=== PATIENT | female | born 2000 | race Caucasian/White ===

== ENCOUNTER 2019-08-06 14:34 | Emergency (ER) | payer BC, SELFPAY ==
[2019-08-06 14:35] VITALS: BP 143/101; PULSE 70; RESP 16; TEMP 36.8; O2SAT 96; BMI 34.0
--- NOTE | 2019-08-06 15:22 | ED.DCSUM_ITS ---
- ER Visit Summary Date of Service: 08/06/19 Chief Complaint: Adverse reaction History of Present Illness: The patient is a 19 F who presents with adverse reaction to an inhaler that she took today for the first time. Patient states she was given an albuterol inhaler for recent upper respiratory infection. Patient used it for the first time today and then approximately 1 hour later she noted some burning in her throat and chest. Patient also noted some tingling in her face and twitching of her facial muscles. Patient states nothing makes it better or worse. Patient denies any fevers or chills. Patient does admit to a sore throat and recent rhinorrhea. Patient admits to a cough and some shortness of breath at times. Patient denies any difficulty swallowing or throat swelling. Physical Examination: Vital signs are stable. Patient is afebrile. Patient is in no acute distress. Oral mucosa is pink and moist. Oropharynx is clear. Airway is patent. Pupils are equal, round, and reactive to light bilaterally. Extraocular muscles are intact. Conjunctiva is clear. Neck is supple. Trachea is midline. There is no JVD. Heart was regular rate and rhythm. Lungs are clear and equal bilaterally. Abdomen is soft and nontender. Cranial nerves II through XII are intact. There are no focal motor or sensory deficits noted. There are no facial fasciculations noted. Emergency Department Course and Treatment: Patient was given a dose of Benadryl here. Patient was feeling better on reevaluation. Patient was instructed to stop using the inhaler. Patient was instructed to take Benadryl as needed. Patient was instructed to follow-up with her primary care physician in 5 to 7 days. Patient understood and was agreeable with the plan. All questions were answered. Disposition: Discharge home Impression: Adverse medication reaction This note was generated with [employer] dictation software. It may contain incorrect words, spelling, and punctuation that were not noted in review of the chart prior to signing ED Disposition - Plan for ED Patient: Disposition: Home or Assisted Living Diagnosis: Adverse drug reaction Instructions: DRUG REACTION, Other Referrals: NOT,DEFINED [NON-STAFF] - 5-7 Days
[2019-08-06] MEDS: DiphenhydrAMINE 25 MG Capsule 50 MG PO (15:58)
[2019-08-06 16:15] VITALS: BP 137/81; PULSE 69; RESP 16; O2SAT 99
== END 2019-08-06 16:16 | disposition home or self-care (01) ==
PROVIDERS: Emergency Provider Emergency Medicine
DX: R20.2 Paresthesia of skin (principal); R25.3 Fasciculation; T48.6X5A Adverse effect of antiasthmatics, initial encounter; Y92.9 Unspecified place or not applicable; J06.9 Acute upper respiratory infection, unspecified
CPT/HCPCS: 99283

== ENCOUNTER → 2019-10-10 07:53 | Outpatient (CLI) | payer BC, SELFPAY ==
[2019-10-10 08:18] LABS: Lyme Ab Screen Interpretation REF LAB
--- NOTE | 2019-10-10 08:57 | RAD_ITS ---
STUDY: X-RAY - BILATERAL HANDS REASON FOR EXAM: Female, 19 years old. CHRONIC PAIN. EVAL FOR RHEUMATOLOGY TECHNIQUE - RIGHT HAND: 1 view(s) of the right hand were obtained. TECHNIQUE - LEFT HAND: 1 view(s) of the left hand were obtained. COMPARISON: None. FINDINGS - RIGHT HAND: Normal visualized carpal bones and carpal articulations. Normal carpometacarpal articulation of the thumb. Normal second through fifth carpometacarpal joints. Normal metacarpi. Normal metacarpophalangeal (MCP) joints. Normal visualized phalanges and interphalangeal joints. The soft tissue structures are unremarkable. FINDINGS - LEFT HAND: Normal visualized carpal bones and carpal articulations. Normal carpometacarpal articulation of the thumb. Normal second through fifth carpometacarpal joints. Normal metacarpi. Normal metacarpophalangeal (MCP) joints. Normal visualized phalanges and interphalangeal joints. The soft tissue structures are unremarkable. RAD/Hand 2 Views IMPRESSION: Right Hand: Normal x-ray examination of the right hand. Left Hand: Normal x-ray examination of the left hand. Electronically Signed: Maury Muñoz, at 10:46 EDT , Service support ,
--- NOTE | 2019-10-10 08:57 | RAD_ITS ---
STUDY: X-RAY - LUMBAR SPINE REASON FOR EXAM: Female, 19 years old. CHRONIC PAIN TECHNIQUE: 4 view(s) of the lumbar spine were obtained including oblique views. COMPARISON: None FINDINGS: Normal lumbar lordosis. There is no substantial scoliosis. There is a normal alignment of the vertebrae. Normal vertebral bodies and endplates. Normal disc space heights. The soft tissue structures are unremarkable. RAD/L/S Spine Min 4 Views IMPRESSION: Normal x-ray examination of the lumbar spine. Electronically Signed: Maury Muñoz, at 11:07 EDT , Service support ,
--- NOTE | 2019-10-10 08:57 | RAD_ITS ---
STUDY: X-RAY - BILATERAL KNEES REASON FOR EXAM: Female, 19 years old. CHRONIC PAIN, LEFT KNEE WORSE THAN RIGHT -- EVAL FOR RHEUMATOLOGY TECHNIQUE: Single frontal view(s) of the right knee were obtained. Single frontal view(s) of the left knee were obtained. Single frontal view(s) of the bilateral knees were obtained including AP standing weight-bearing views. COMPARISON: None. FINDINGS - RIGHT KNEE: Normal visualized right distal femur. Normal visualized proximal right tibia and fibula. Normal right proximal tibiofibular articulation. Normal medial femorotibial compartment of the right knee. Normal lateral femorotibial compartment of the right knee. Normal patellofemoral articulation of the right knee. The soft tissue structures are unremarkable. FINDING - LEFT KNEE: Normal visualized left distal femur. Normal visualized proximal left tibia and fibula. Normal left proximal tibiofibular articulation. Normal medial femorotibial compartment of the left knee. Normal lateral femorotibial compartment of the left knee. Normal patellofemoral articulation of the left knee. The soft tissue structures are unremarkable. RAD/Knees Standing AP Bilateral IMPRESSION: Normal x-ray examination of the bilateral knees. Electronically Signed: Maury Muñoz, at 10:47 EDT , Service support ,
--- NOTE | 2019-10-10 08:57 | RAD_ITS ---
STUDY: X-RAY - CERVICAL SPINE REASON FOR EXAM: Female, 19 years old. CHRONIC PAIN TECHNIQUE: 5 view(s) of the cervical spine were obtained including oblique views. COMPARISON: None FINDINGS: Normal anterior atlantoaxial articulation. Normal odontoid process. There is straightening of the normal cervical lordosis. Normal vertebral bodies and endplates. Normal disc space heights. Normal visualized intervertebral neuroforamina. The soft tissue structures are unremarkable. RAD/Cerv Spine 4 or 5 Views IMPRESSION: There is straightening of the normal cervical lordosis. Electronically Signed: Maury Muñoz, at 10:46 EDT , Service support ,
--- NOTE | 2019-10-10 08:57 | RAD_ITS ---
STUDY: X-RAY - RIGHT WRIST REASON FOR EXAM: Female, 19 years old. CHRONIC PAIN TECHNIQUE: 2 view(s) of the wrist were obtained. COMPARISON: None. FINDINGS: Normal visualized distal radius and ulna. Normal radiocarpal articulation. Normal distal radioulnar articulation. Normal carpal bones. Normal carpal articulations. Normal carpometacarpal articulation of the thumb. Normal second through fifth carpometacarpal articulations. Normal visualized metacarpal bones. The soft tissue structures are unremarkable. RAD/Wrist 2 Views IMPRESSION: Normal x-ray examination of the wrist. Electronically Signed: Maury Muñoz, at 11:07 EDT , Service support ,
--- NOTE | 2019-10-10 08:57 | RAD_ITS ---
STUDY: X-RAY - SACROILIAC JOINTS REASON FOR EXAM: Female, 19 years old. CHRONIC PAIN TECHNIQUE: 3 view(s) of the sacroiliac joints were obtained. COMPARISON: None. FINDINGS: Normal bilateral sacroiliac joints. Normal visualized sacral ala and sacrum. Normal visualized iliac bones. Normal visualized soft tissue structures. RAD/S-I Jts 3 or More Views IMPRESSION: Normal x-ray examination of the bilateral sacroiliac joints. Electronically Signed: Maury Muñoz, at 11:09 EDT , Service support ,
--- NOTE | 2019-10-10 08:57 | RAD_ITS ---
STUDY: X-RAY - RIGHT KNEE REASON FOR EXAM: Female, 19 years old. CHRONIC PAIN TECHNIQUE: 4 view(s) of the knee. COMPARISON: None. FINDINGS: Normal visualized distal femur. Normal visualized proximal tibia and fibula. Normal proximal tibiofibular articulation. Normal medial femorotibial compartment. Normal lateral femorotibial compartment. Normal patellofemoral articulation. The soft tissue structures are unremarkable. RAD/Knee 4 or More Views IMPRESSION: Normal x-ray examination of the knee. Electronically Signed: Maury Muñoz, at 10:46 EDT , Service support ,
--- NOTE | 2019-10-10 08:57 | RAD_ITS ---
STUDY: X-RAY - THORACIC SPINE REASON FOR EXAM: Female, 19 years old. CHRONIC PAIN TECHNIQUE: 3 view(s) of the thoracic spine were obtained. COMPARISON: None. FINDINGS: There is straightening of the normal thoracic kyphosis. Minimal dextroscoliosis. Normal thoracic vertebrae and endplates. Normal disc space heights. The soft tissue structures are unremarkable. RAD/Thoracic Spine 3 Views IMPRESSION: Minimal dextroscoliosis with straightening of the normal thoracic kyphosis. Electronically Signed: Maury Muñoz, at 10:48 EDT , Service support ,
--- NOTE | 2019-10-10 08:57 | RAD_ITS ---
STUDY: X-RAY - LEFT KNEE REASON FOR EXAM: Female, 19 years old. CHRONIC PAIN, LEFT KNEE WORSE THAN RIGHT TECHNIQUE: 4 view(s) of the knee. COMPARISON: None. FINDINGS: Normal visualized distal femur. Normal visualized proximal tibia and fibula. Normal proximal tibiofibular articulation. Normal medial femorotibial compartment. Normal lateral femorotibial compartment. Normal patellofemoral articulation. The soft tissue structures are unremarkable. RAD/Knee 4 or More Views IMPRESSION: Normal x-ray examination of the knee. Electronically Signed: Maury Muñoz, at 10:41 EDT , Service support ,
--- NOTE | 2019-10-10 08:57 | RAD_ITS ---
STUDY: X-RAY - LEFT WRIST REASON FOR EXAM: Female, 19 years old. CHRONIC PAIN TECHNIQUE: 2 view(s) of the wrist were obtained. COMPARISON: None. FINDINGS: Normal visualized distal radius and ulna. Normal radiocarpal articulation. Normal distal radioulnar articulation. Normal carpal bones. Normal carpal articulations. Normal carpometacarpal articulation of the thumb. Normal second through fifth carpometacarpal articulations. Normal visualized metacarpal bones. The soft tissue structures are unremarkable. RAD/Wrist 2 Views IMPRESSION: Normal x-ray examination of the wrist. Electronically Signed: Maury Muñoz, at 11:05 EDT , Service support ,
[2019-10-10 09:05] LABS: Erythrocyte Sedimentation Rate < 1 mm/hr (0-20)
[2019-10-10 09:07] LABS: Absolute Neutrophil Count 4.6 X10^3/uL (2.0-7.7); Basophil# 0.06 X10^3/uL; Basophil% 0.8 % (0-1); Eosinophil# 0.09 X10^3/uL; Eosinophils% 1.2 % (0-5); Hematocrit 38.7 % (37-47); Hemoglobin 12.7 g/dL (12.0-15.0); Mean Corp Hgb Conc 32.8 g/dL (32-36); Mean Corpuscular Hgb 28.9 pg (27.0-32.0); Mean Corpuscular Volume 88.2 fL (81-99); Mean Platelet Vol. 10.7 fl (6.2-12.0); Monocyte# 0.38 X10^3/uL; Monocyte% 5.2 % (0-10); NRBC Flagged by Analyzer 0 % (0-5); Neutrophil % 63.7 % (47-70); Platelet Count 291 K/mm3 (150-450); RBC Distribution Width CV 13.2 % (11.6-14.6); RBC Distribution Width SD 42.8 fl (35.1-43.9); Red Blood Count 4.39 M/mm3 (4.2-5.4); White Blood Count 7.2 K/mm3 (4.4-11.0)
[2019-10-10 09:53] LABS: Vitamin B12 600 pg/mL (211-911); Vitamin D,25 Hydroxy 14.2 ng/mL
[2019-10-10 09:55] LABS: ALB/GLOB Ratio 1.4 RATIO (0.9-2.4); AST(SGOT) 11 U/L (15-37); Alanine Aminotransfer ALT/SGPT 14 U/L (13-56); Albumin, Serum 4.1 g/dL (3.2-5.0); Alkaline Phosphatase 81 U/L (45-117); Anion Gap 6 (5-15); BUN 10 mg/dL (7-18); BUN/Creat Ratio 12.2 RATIO (10-20); CPK Total, Creatine Kinase 78 U/L (26-192); CRP < 2.90 mg/L (0.0-3.0); Calcium,Total 9.2 mg/dL (8.5-10.1); Chloride 109 mmol/L (98-107); Creatinine, Serum 0.82 mg/dL (0.55-1.02); EST Glomerular Filtration Rate 93 mL/min (>60); Est Glom Filt Rate - Afr Amer 112 mL/min (>60); Glucose 86 mg/dL (74-106); Magnesium 2.1 mg/dL (1.6-2.6); Protein, Total 7.1 g/dL (6.4-8.2); Rheumatoid Factor < 10.0 IU/mL (<15); Sodium Level 140 mmol/L (136-145); Uric Acid 3.3 mg/dL (2.6-6.0)
[2019-10-13 14:07] LABS: Vitamin D 1,25-Dihydroxy 37.2 pg/mL (19.9-79.3)
[2019-10-14 05:58] LABS: ANTINUCLEAR ANTIBODIES DIRECT Negative (Negative)
[2019-10-15 09:36] LABS: Albumin 4.1 g/dL (2.9-4.4); Alpha-1-Globulins 0.2 g/dL (0.0-0.4); Alpha-2-Globulins 0.6 g/dL (0.4-1.0); Angiotensin Convert Enzyme 45 U/L (14-82); Cytoplasmic Ab (C-ANCA) <1:20 titer (Neg:<1:20); Folate, RBC (Hct) Test 40.3 % (34.0-46.6); Folates, RBC Test 730 ng/mL (>498); Gamma Globulin 0.7 g/dL (0.4-1.8); Immunoglobulin A 72 mg/dL (87-352); Immunoglobulin M 31 mg/dL (26-217); PROEL- TOTAL PROTEIN 6.6 g/dL (6.0-8.5); Vitamin B1, Thiamine 137.8 nmol/L (66.5-200.0)
[2019-10-15 14:35] LABS: HLA B27 Negative (.); Immunoglobulin G 793 mg/dL (586-1602); Perinuclear Ab (P-ANCA) <1:20 titer (Neg:<1:20)
[2019-10-15 14:36] LABS: CCP IgG Antibodies 7 units (0-19); Lyme Scn Total Ab w/Rflx <0.91 ISR (0.00-0.90); t-Transglutaminase IgA <2 U/mL (0-3)
== END ==
PROVIDERS: PCP Family Medicine; Referring Provider Internal Medicine Rheumatology; Visit Provider Internal Medicine Rheumatology
DX: M54.9 Dorsalgia, unspecified (principal); M54.2 Cervicalgia; R20.2 Paresthesia of skin; G56.03 Carpal tunnel syndrome, bilateral upper limbs; M89.9 Disorder of bone, unspecified; M94.9 Disorder of cartilage, unspecified; M25.531 Pain in right wrist; M25.532 Pain in left wrist; M79.641 Pain in right hand; M79.642 Pain in left hand; G89.29 Other chronic pain; R53.83 Other fatigue; R29.898 Other symptoms and signs involving the musculoskeletal system; F31.9 Bipolar disorder, unspecified; Z79.1 Long term (current) use of non-steroidal anti-inflammatories (NSAID)
CPT/HCPCS: 36415; 72050; 72072; 72110; 72202; 73100; 73120; 73564; 73565; 80053; 81374; 82164; 82306; 82550; 82607; 82652; 82747; 82784; 83516; 83735; 84165; 84425; 84443; 84550; 85014; 85025; 85652; 86038; 86140; 86200; 86225; 86235; 86256; 86334; 86431; 86618

== ENCOUNTER 2019-12-09 12:53 | Emergency (ER) | payer BC, SELFPAY ==
[2019-12-09 12:55] VITALS: BP 148/101; PULSE 89; RESP 17; TEMP 36.3; O2SAT 98; BMI 34.1
--- NOTE | 2019-12-09 13:46 | ED.VISSUMM ---
- ER Visit Summary Date of Service: 12/09/19 Chief Complaint: Abdominal pain History of Present Illness: The patient is a 19 F who presents with abdominal pain that began last night. Patient states it began rather suddenly. Patient states it feels similar to the pain she has had in the past with ruptured ovarian cyst. Patient describes the pain as constant pressure but intermittent stabbing and cramping. Patient states pain is over the right lower quadrant. Patient states the pain is worse with standing. Patient denies any nausea or vomiting. Patient denies any diarrhea, melena, or hematochezia. Patient denies any dysuria or hematuria. Patient states she is currently on her menstrual period. Physical Examination: Vital signs are stable except for mildly elevated blood pressure 148/101. Patient is afebrile. Patient is in no acute distress. Oral mucosa is pink and moist. Neck is supple. Trachea is midline. There is no JVD. Heart was regular rate and rhythm. Lungs are clear and equal bilaterally. Abdomen is soft. Bowel sounds are normal. There is some right lower quadrant tenderness. There is no rebound or guarding noted. Cranial nerves II through XII are intact. There are no focal motor or sensory deficits noted. Extremities are intact. There is no calf tenderness or edema. Test Results: CBC, comprehensive metabolic profile, and serum hCG were obtained were within normal limits. Urinalysis showed occult blood 250 with 50-100 red blood cells. Because of this a CT of the abdomen pelvis was obtained. There is no ureteral calculus. There is no evidence of appendicitis. There is no acute process noted. Emergency Department Course and Treatment: Patient was given IV fluids. Patient was given morphine and Zofran here. Patient was feeling better on reevaluation. Patient was instructed to drink plenty of fluids. Patient was instructed to follow-up with her primary care physician in 5 to 7 days. Patient was instructed to take Tylenol or ibuprofen as needed for pain. Patient understood and was agreeable with the plan. All questions were answered. Disposition: Discharge home Impression: Abdominal pain This note was generated with [employer] dictation software. It may contain incorrect words, spelling, and punctuation that were not noted in review of the chart prior to signing ED Disposition - Plan for ED Patient: Disposition: Home or Assisted Living Diagnosis: Abdominal pain Instructions: ED Abdominal Pain Unkn Cause Fem Referrals: Elio Sifuentes MD [Primary Care Provider] - 5-7 Days
[2019-12-09] MEDS: Morphine 4 MG/ML Syringe IV (14:31)
[2019-12-09] MEDS: Ondansetron 4 MG/2 ML Vial IV (14:31)
[2019-12-09] MEDS: 0.9% Normal Saline 1,000 ML 1000 ML IV (14:31)
[2019-12-09 14:32] LABS: Absolute Lymphocyte Count 1.42 X10^3/uL (0.83-4.51); Absolute Neutrophil Count 4.9 X10^3/uL (2.0-7.7); Basophil# 0.06 X10^3/uL; Basophil% 0.9 % (0-1); Eosinophil# 0.16 X10^3/uL; Eosinophils% 2.3 % (0-5); Hematocrit 40.6 % (37-47); Hemoglobin 13.2 g/dL (12.0-15.0); Lymphocyte # 1.42 X10^3/ul (4.0); Lymphocyte % 20.6 % (19-41); Mean Corp Hgb Conc 32.5 g/dL (32-36); Mean Corpuscular Hgb 29.9 pg (27.0-32.0); Mean Corpuscular Volume 91.9 fL (81-99); Mean Platelet Vol. 10.1 fl (6.2-12.0); Monocyte# 0.33 X10^3/uL; Monocyte% 4.8 % (0-10); NRBC Flagged by Analyzer 0 % (0-5); Neutrophil % 71.1 % (47-70); Platelet Count 310 K/mm3 (150-450); RBC Distribution Width SD 43.2 fl (35.1-43.9); Red Blood Count 4.42 M/mm3 (4.2-5.4); White Blood Count 6.9 K/mm3 (4.4-11.0)
[2019-12-09 14:37] LABS: Internal QC Validated? YES +Cl - CLEAR BKGD; Pregnancy, Serum, hCG Quali. NEGATIVE Negative
[2019-12-09 14:41] LABS: Bacteria 0 SEEN /hpf (None Seen); Mucous, Urine 0 SEEN /hpf (<or=2+); White Blood Cells 0 SEEN /hpf (0-5)
[2019-12-09 14:44] LABS: Color, Urine Yellow (Yellow); Glucose, Dipstick Normal (Normal); Ketone-Dipstick Negative (Negative); Leukocyte Esterase-Dipstick Negative /ul (Negative); Nitrite-Dipstick Negative (Negative); Occult Blood-Urine 250 /ul (Negative); Protein-Dipstick Negative (Negative); Urine Bilirubin Dipstick Negative (Negative); Urine Clarity Sl. Cloudy (Clear); Urine Urobilinogen Normal (Normal); Urine pH 6.5 (5.0 - 8.0)
[2019-12-09 14:44] LABS: ALB/GLOB Ratio 1.3 RATIO (0.9-2.4); AST(SGOT) 9 U/L (15-37); Alanine Aminotransfer ALT/SGPT 20 U/L (13-56); Albumin, Serum 4.1 g/dL (3.2-5.0); Alkaline Phosphatase 95 U/L (45-117); Anion Gap 6 (5-15); BUN 11 mg/dL (7-18); BUN/Creat Ratio 14.7 RATIO (10-20); Chloride 112 mmol/L (98-107); Creatinine, Serum 0.75 mg/dL (0.55-1.02); EST Glomerular Filtration Rate 104 mL/min (>60); Est Glom Filt Rate - Afr Amer 125 mL/min (>60); Estimated Creatinine Clearance 102.46 ml/min; Globulin 3.2 g/dL (2.2-4.2); Glucose 90 mg/dL (74-106); Potassium 4.1 mmol/L (3.5-5.1); Protein, Total 7.3 g/dL (6.4-8.2); Sodium Level 142 mmol/L (136-145)
[2019-12-09 14:50] LABS: Red Blood Cells-Urine 50-100 SEEN /hpf (0-5); Squamous Epithelial Cells - UA 0-5 SEEN /hpf (5-10)
--- NOTE | 2019-12-09 15:22 | CT_ITS ---
STUDY: CT ABDOMEN AND PELVIS WITHOUT CONTRAST REASON FOR EXAM: Female, 19 years old. RT FLANK PAIN STARTING AT 0600 THIS AM RADIATION DOSAGE (If Supplied By Facility): CTDIvol = ( 9.86 ) mGy, DLP = ( 510.16 ) mGycm TECHNIQUE: Transaxial images were obtained from the dome of the diaphragm to the symphysis pubis without oral contrast, and without intravenous contrast. Sagittal and coronal images were reconstructed. Individualized dose optimization techniques were used for this CT. COMPARISON: None. FINDINGS: The visualized lung bases are unremarkable. The visualized portions of the heart are within normal limits. Normal liver. Normal gallbladder and extrahepatic biliary system. Normal spleen. Normal pancreas. Normal bilateral adrenal glands. Normal right kidney. Normal left kidney. Normal visualized stomach. Normal small intestine. Normal colon. The appendix is visualized and appears normal. Normal abdominal aorta. Normal inferior vena cava. Normal retroperitoneum. Normal urinary bladder. Normal visualized uterus. Normal abdominal wall. Normal osseous structures. CT/Abdomen/Pelvis without Cont IMPRESSION: No acute process identified. Normal appendix. Electronically Signed: Luis Amezquita, at 16:24 EDT Tel , Service support ,
[2019-12-09 15:32] VITALS: BP 138/84; PULSE 78; RESP 16; O2SAT 99
[2019-12-09 17:39] VITALS: BP 140/58; BP 140/89; PULSE 73; RESP 16; O2SAT 99
== END 2019-12-09 17:41 | disposition home or self-care (01) ==
PROVIDERS: Emergency Provider Emergency Medicine; PCP Family Medicine
DX: R10.31 Right lower quadrant pain (principal); R03.0 Elevated blood-pressure reading, without diagnosis of hypertension; M54.9 Dorsalgia, unspecified; M54.2 Cervicalgia; G89.29 Other chronic pain; R51 Headache; J02.9 Acute pharyngitis, unspecified; F31.9 Bipolar disorder, unspecified; Z79.899 Other long term (current) drug therapy
CPT/HCPCS: 74176; 80053; 81001; 84703; 85025; 96361; 96374; 96375; 99283; J7030; A4216; J2405

== ENCOUNTER → 2019-12-12 16:25 | Outpatient (CLI) | payer BC, SELFPAY ==
[2019-12-09 12:55] VITALS: BMI 34.1
--- NOTE | 2019-12-12 16:30 | US_ITS ---
STUDY: ULTRASOUND TRANSVAGINAL CLINICAL: Female, 19 years old. rlq pain TECHNIQUE: Transvaginal COMPARISON: None. FINDINGS: Normal uterine size measuring 6.7 x 4.2 x 2.9 cm. There are no myometrial masses. Normal endometrial thickness measuring 2 mm. There are no endometrial masses. Fluid is present in the endometrial cavity. Normal uterine cervix. Normal right ovary, measuring 3.2 x 2.0 x 1.3 cm. There are multiple follicles without a dominant cyst. Normal left ovary, measuring 2.6 x 2.4 x 1.8 cm. There are multiple follicles without a dominant cyst. There is no free fluid in the pelvis. Polycystic ovary disease: No. US/Transvaginal Non- IMPRESSION: Fluid in the endometrial cavity. Normal ovaries. Electronically Signed: Burt Romo MD at 17:36 EDT Tel , Service support ,
== END ==
PROVIDERS: PCP Family Medicine; Referring Provider Family Medicine; Visit Provider Family Medicine
DX: R10.31 Right lower quadrant pain (principal)
CPT/HCPCS: 76830

== ENCOUNTER 2020-02-12 12:41 | Emergency (ER) | payer BC, SELFPAY ==
[2020-02-12 12:41] VITALS: BP 160/107; PULSE 112; RESP 16; TEMP 36.9; O2SAT 97; BMI 34.0
--- NOTE | 2020-02-12 13:06 | ED.DCSUM_ITS ---
History of Present Illness Chief Complaint: Confusion Informant: Patient Onset: Today Current Severity: Mild Narrative: The patient presents complaining of feeling emotional tearful for unspecified reasons. She is not confused, she has history of bipolar disorder and depression PTSD chronic headaches. She lives with her boyfriend his mother, she has a job, she indicates everything at home and work are fine she went to bed feeling fine woke this morning feeling very tearful and emotional for unspecified reasons symptoms persisted and the mother in law individual dropped her off at the emergency department. She is seen by the [facility] counselors for all of the above she is kept all of her appointments she is on no medications except what is listed she does not use illicit drugs, she denies being homicidal or suicidal, she has had these episodes before and again when they occur it is not clear her PTSD is related to a difficult childhood Past Medical History - Allergies and Home Meds Allergies/Adverse Reactions: Allergies fluoxetine [From Prozac] Adverse Reaction (Verified 02/12/20 12:43) Other Primary Care Physician: Elio Sifuentes MD [Primary Care Provider] - Past Medical History: - - Includes as above Smoking Status: Light Smoker (<10/day) Review of Systems General: Denies: Chills, Fever, Sweats Eyes: Denies: Visual changes - bilaterally, Diplopia ENT: Denies: Rhinorrhea, Sore throat Cardiovascular: Denies: Chest pain, Palpitations Respiratory: Denies: Dyspnea, Cough, Dyspnea on exertion Gastrointestinal: Denies: Abdominal pain, Nausea, Vomiting, Diarrhea, Melena, Hematochezia Genitourinary: Denies: Dysuria, Hematuria, Frequency Musculoskeletal: Denies: Back pain, Extremity Pain Skin: Denies: Rash, Wounds Neurological: Reports: Headache. Denies: Weakness, Numbness Psych: Reports: Depression, Anxiety. Denies: Suicidal thoughts Physical Exam Vital Signs/Narrative: Vital Signs Temp Pulse Resp BP Pulse Ox 02/12/20 12:41 98.4 F 112 H 16 160/107 H 97 General: Well nourished, Well developed, No Acute Distress Head: Normocephalic, Atraumatic Eyes: Perrl, EOMI ENT: Moist mucous membranes, No rhinorrhea Neck: Supple, Nontender Cardiovascular: Regular rate, Regular rhythm, No murmurs Respiratory: No distress, CTA bilaterally, Chest nontender Abdomen: Soft, Nontender, Nondistended, Normal bowel sounds Back: Nontender, Normal Inspection Extremities: Nontender, No edema Skin: Normal color, No rash Neurological: Alert, Oriented x3, Cranial nerves II-XII grossly intact, Normal Strength, Normal Sensation Psychological: Normal affect, Normal Mood, Tearful, - - The patient is awake alert oriented x4 she has clear recollection of her past current history all of her issues there is no signs of confusion she is oriented again x4 she denies being suicidal homicidal she just feels emotional and tearful for unspecified reasons she is able to walk around the room her neck is supple her HEENT general medical exam neurologic exam all unremarkable Diagnostic/Tx/Re-eval - Medical Decision Making I had a long conversation with the patient there does not appear any acute obvious reason she would be emotional and tearful, we discussed inpatient outpatient management we discussed seeing her counselors she has chronic headaches that date back to when she was a young child that are related to migraines I explained her we could do a head CT to evaluate for the above she declined that, she does not wish to have any specific therapies to the emergency department, she indicates when she has these emotional episode she has difficulty seeing her counselors as they prefer to see her on a scheduled basis. I have asked our counselors here in the emergency department to talk to the patient to try to provide additional services and resources otherwise the patient states she feels fine she wants to go home she does not feel as if she can go to work today because of her being emotional she will be given a work release and asked to follow-up with her counselor tomorrow return for change in symptoms, again she has no other complaints no fever no cough no coronavirus exposures no illicit drug use she is executing all of her daily activities and there is no confusion Home stable Final impression emotional state etiology unclear ED Disposition - Plan for ED Patient: Diagnosis: Stress Instructions: Coping with PTSD Referrals: Elio Sifuentes MD [Primary Care Provider] - Additional Instructions: Follow-up with your outpatient providers and counselors tomorrow
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
== END 2020-02-12 13:44 | disposition home or self-care (01) ==
LOC: ED 13:37
PROVIDERS: Emergency Provider Emergency Medicine; PCP Family Medicine
DX: F43.9 Reaction to severe stress, unspecified (principal); F43.10 Post-traumatic stress disorder, unspecified; X58.XXXA Exposure to other specified factors, initial encounter; Y93.9 Activity, unspecified; Y92.9 Unspecified place or not applicable; Y99.9 Unspecified external cause status; F31.9 Bipolar disorder, unspecified; F41.9 Anxiety disorder, unspecified; R51 Headache; G89.29 Other chronic pain; F17.200 Nicotine dependence, unspecified, uncomplicated; Z79.899 Other long term (current) drug therapy
CPT/HCPCS: 99282

== ENCOUNTER 2020-05-25 15:47 | Emergency (ER) | payer BC, SELFPAY ==
[2020-05-25 15:50] VITALS: BP 135/98; PULSE 85; RESP 16; TEMP 36.1; O2SAT 100; BMI 30.9
--- NOTE | 2020-05-25 17:01 | EKG12_ITS ---
Test Reason : MENTAL STATUS CHG Blood Pressure : / mmHG Vent. Rate : 072 BPM Atrial Rate : 072 BPM P-R Int : 136 ms QRS Dur : 080 ms QT Int : 364 ms P-R-T Axes : 033 043 026 degrees QTc Int : 398 ms Sinus rhythm with marked sinus arrhythmia Otherwise normal ECG Confirmed by JOVITA BRUSH, CHASE ([id number]), publishing editor CIRA VALENTINE ([id number]) on 05/28/2020 8:51:32 A M Referred By: CHHAYA Confirmed By:ZAMZAM HUSSEIN MD
--- NOTE | 2020-05-25 17:01 | CT_ITS ---
STUDY: CT BRAIN WITHOUT CONTRAST REASON FOR EXAM: Female, 20 years old. NEAR SYNCOPE, HEADACHE. and quot;FEELS FUZZY and quot; -- HX:ASTHMA RADIATION DOSAGE (If Supplied By Facility): CTDIvol = ( 44.99 ) mGy, DLP = ( 745.49 ) mGycm TECHNIQUE: Transaxial CT imaging of the brain was performed without administration of intravenous contrast material. Individualized dose optimization techniques were used for this CT. COMPARISON: No relevant priors. FINDINGS: Normal soft tissue structures. Normal calvarium. Normal size ventricles and extra-axial spaces for the patient''s age. Normal white matter tracts of the cerebral hemispheres. Normal basal ganglia and thalami. Normal brainstem. Normal cerebellum. There is no intracranial hemorrhage. There are no findings of an acute ischemic infarction. Normal visualized paranasal sinuses. CT/Brain/Head without Contrast IMPRESSION: Normal unenhanced CT scan of the brain. Electronically Signed: Memo Downs MD at 18:40 EST , Service support ,
--- NOTE | 2020-05-25 17:03 | ED.VIS.GEN ---
History of Present Illness Chief Complaint: Mental Status Change Informant: Patient Narrative: 20-year-old female presenting for evaluation of lightheadedness. She states she was at work and she started to feel fuzzy. She states that she woke up in the ambulance. She did not know if she fainted or had a seizure but she does have a history of seizure disorder. She is followed up twice previously and states that she is not on any seizure medication. She states he is never had imaging of her brain as well. Today she is complaining of headache. Patient states she has not been in contact with anybody who saw what happened. Patient denies urinating or defecating. She did not bite her tongue. She states that prior to this she was otherwise well. Past Medical History - Allergies and Home Meds Allergies/Adverse Reactions: Allergies fluoxetine [From Prozac] Adverse Reaction (Verified 05/25/20 15:49) Other Primary Care Physician: Elio Sifuentes MD [Primary Care Provider] - Prior records reviewed: Yes Past Medical History: - - History of seizure Surgical History: noncontributory Lives: Spouse/ Significant Other Smoking Status: Former smoker Alcohol: None Drugs: None Review of Systems General: Denies: Chills, Fever, Malaise Eyes: Reports: - - Dizziness and blurring ENT: Denies: Bilateral ear pain, Left ear pain Cardiovascular: Denies: Chest pain, Palpitations Respiratory: Denies: Dyspnea, Cough, Sputum Gastrointestinal: Denies: Abdominal pain, Nausea, Vomiting Genitourinary: Denies: Dysuria, Hematuria Musculoskeletal: Denies: Myalgias Skin: Denies: Rash, Abscess Neurological: Reports: Headache. Denies: Parasthesia, Numbness Psych: Denies: Depression, Anxiety Physical Exam Vital Signs/Narrative: Vital Signs Temp Pulse Resp BP Pulse Ox 05/25/20 15:50 96.9 F L 85 16 135/98 H 100 Inital Vital Signs reviewed: Yes General: Well nourished, No Acute Distress Head: Normocephalic, Atraumatic Eyes: Perrl, EOMI. Negative for: Pale conjunctiva ENT: Moist mucous membranes, No rhinorrhea Cardiovascular: Regular rate, Regular rhythm Respiratory: No distress, CTA bilaterally Abdomen: Soft, Nontender, Nondistended Extremities: Nontender, No edema, Tenderness Skin: Normal color, No rash Neurological: Alert, Oriented x3, Cranial nerves II-XII grossly intact, - - No focal neurologic deficits Psychological: Normal affect, Tearful Diagnostic/Tx/Re-eval Clinical Impression(s) from Imaging Studies Brain CT 05/25/20 17:01 IMPRESSION: Normal unenhanced CT scan of the brain. Electronically Signed: Memo Downs MD at 18:40 EST , Service support , Laboratory Data 05/25/20 05/25/20 05/25/20 17:10 17:30 17:30 WBC 11.3 H RBC 4.25 Hgb 13.2 Hct 39.3 MCV 92.5 MCH 31.1 MCHC 33.6 RDW Std Deviation 42.0 RDW Coeff of Mray 12.4 Plt Count 355 MPV 10.4 Immature Gran % (Auto) 0.400 Neut % (Auto) 82.7 H Lymph % (Auto) 12.6 L [place] % (Auto) 3.4 Eos % (Auto) 0.4 Baso % (Auto) 0.5 Absolute Neuts (auto) 9.4 H Absolute Lymphs (auto) 1.43 Nucleated RBC % 0 Sodium 142 Potassium 3.8 Chloride 110 H Carbon Dioxide 25.0 Anion Gap 7 BUN 11 Creatinine 0.69 Estim Creat Clear Calc 110.43 Est GFR (MDRD) Af Amer 137 Est GFR (MDRD) Non-Af 113 BUN/Creatinine Ratio 16.0 Glucose 89 Calcium 9.6 Troponin I < 0.015 Urine Color Yellow Urine Clarity Sl. Cloudy Urine pH 6.5 Ur Specific [place] 1.010 Urine Protein Negative Urine Glucose (UA) Normal Urine Ketones Negative Urine Occult Blood 50 H Urine Nitrite Negative Urine Bilirubin Negative Urine Urobilinogen Normal Ur Leukocyte Esterase Negative Urine RBC 5-10 SEEN Urine WBC 0 SEEN Ur Squamous Epith Cells 5-10 SEEN Amorphous Sediment 1+ URATE Urine Bacteria 0 SEEN Urine Mucus 0 SEEN Urine Test Negative - Rhythm Strip Rhythm Strip: Sinus Rhythm Rate: 72 - EKG Initial EKG Interpretation: Sinus Rhythm, No Acute Injury Pattern - Medical Decision Making Patient presents with altered mental status which is resolved now. She states she has a seizure history but has been told she does not need to take seizure medications. She has not taken these in a while. Patient states that she has had 2 follow-ups and told she does not need seizure medications anymore. It is unclear if she had a syncopal event versus seizure however she is alert and oriented here. She had no loss of urine or stool. She did not bite her tongue. She does not appear to be postictal. I did obtain lab work and imaging which is fairly unremarkable. EKG shows sinus rhythm without acute ischemic changes but does have a slight sinus arrhythmia. Patient's orthostatics were positive so she was given IV fluids. CT brain was negative. On reevaluation patient states she feels well. She is able to ambulate to the bathroom without difficulty. She will be discharged home to follow-up with her PCP. Impression: 1. Orthostatic hypotension 2. Altered LOC resolved ED Disposition - Plan for ED Patient: Disposition: Home or Assisted Living Instructions: ED ALOC Referrals: Elio Sifuentes MD [Primary Care Provider] -
--- NOTE | 2020-05-25 17:06 | NURSING ---
NO OLD EKGS
[2020-05-25 17:32] LABS: Bacteria 0 SEEN /hpf (None Seen); Mucous, Urine 0 SEEN /hpf (<or=2+); White Blood Cells 0 SEEN /hpf (0-5)
[2020-05-25 17:35] LABS: Color, Urine Yellow (Yellow); Glucose, Dipstick Normal (Normal); Ketone-Dipstick Negative (Negative); Leukocyte Esterase-Dipstick Negative /ul (Negative); Nitrite-Dipstick Negative (Negative); Occult Blood-Urine 50 /ul (Negative); Protein-Dipstick Negative (Negative); Urine Bilirubin Dipstick Negative (Negative); Urine Clarity Sl. Cloudy (Clear); Urine Urobilinogen Normal (Normal); Urine pH 6.5 (5.0 - 8.0)
[2020-05-25 17:40] VITALS: BP 131/77; BP 133/86; BP 138/88; PULSE 100; PULSE 70; PULSE 79
[2020-05-25] MEDS: DiphenhydrAMINE 50 MG/ML Syringe 25 MG IV (17:40)
[2020-05-25] MEDS: Metoclopramide 10 MG/2 ML Vial IV (17:41)
[2020-05-25 17:58] LABS: Amorphous Sediment 1+ URATE; Internal QC Validated? YES +Cl - CLEAR BKGD; Pregnancy, Urine Negative Negative; Red Blood Cells-Urine 5-10 SEEN /hpf (0-5); Squamous Epithelial Cells - UA 5-10 SEEN /hpf (5-10)
[2020-05-25] MEDS: 0.9% Normal Saline 1,000 ML 999 ML IV (17:58)
[2020-05-25 17:59] VITALS: BP 133/98; PULSE 70; RESP 20; O2SAT 100
--- NOTE | 2020-05-25 18:00 | ED.RN ---
NOTIFIED DR SHAVER THAT ORTHO'S COMPLETED. BP RELATIVELY STABLE. HR INCREASED. BRIEF READING OF HR AT 156 WHEN STANDING, PT REPORTS FUZZY FEELING WHEN STANDING. TELE MONITOR PLACED. LW=199 WHEN STANDING
[2020-05-25 18:08] LABS: Absolute Lymphocyte Count 1.43 X10^3/uL (0.83-4.51); Absolute Neutrophil Count 9.4 X10^3/uL (2.0-7.7); Basophil# 0.06 X10^3/uL; Basophil% 0.5 % (0-1); Eosinophil# 0.04 X10^3/uL; Eosinophils% 0.4 % (0-5); Hematocrit 39.3 % (37-47); Hemoglobin 13.2 g/dL (12.0-15.0); Lymphocyte # 1.43 X10^3/ul (4.0); Lymphocyte % 12.6 % (19-41); Mean Corp Hgb Conc 33.6 g/dL (32-36); Mean Corpuscular Hgb 31.1 pg (27.0-32.0); Mean Corpuscular Volume 92.5 fL (81-99); Mean Platelet Vol. 10.4 fl (6.2-12.0); Monocyte# 0.39 X10^3/uL; Monocyte% 3.4 % (0-10); NRBC Flagged by Analyzer 0 % (0-5); Neutrophil # 9.36 X10^3/uL (2.7-7.7); Neutrophil % 82.7 % (47-70); Platelet Count 355 K/mm3 (150-450); RBC Distribution Width CV 12.4 % (11.6-14.6); Red Blood Count 4.25 M/mm3 (4.2-5.4); White Blood Count 11.3 K/mm3 (4.4-11.0)
[2020-05-25 18:44] LABS: Anion Gap 7 (5-15); BUN 11 mg/dL (7-18); Calcium,Total 9.6 mg/dL (8.5-10.1); Chloride 110 mmol/L (98-107); Creatinine, Serum 0.69 mg/dL (0.55-1.02); EST Glomerular Filtration Rate 113 mL/min (>60); Est Glom Filt Rate - Afr Amer 137 mL/min (>60); Estimated Creatinine Clearance 110.43 ml/min; Glucose 89 mg/dL (74-106); Potassium 3.8 mmol/L (3.5-5.1); Sodium Level 142 mmol/L (136-145)
[2020-05-25 19:31] VITALS: BP 124/79; PULSE 68; RESP 15; O2SAT 97
== END 2020-05-25 19:32 | disposition home or self-care (01) ==
PROVIDERS: Emergency Provider Student in an Organized Health Care Education/Training Program; PCP Family Medicine
DX: I95.1 Orthostatic hypotension (principal); R51.9 Headache, unspecified; G40.909 Epilepsy, unspecified, not intractable, without status epilepticus; Z87.891 Personal history of nicotine dependence
CPT/HCPCS: 70450; 80048; 81001; 81025; 84484; 85025; 93005; 96361; 96374; 96375; 99285; J7030; A4216

== ENCOUNTER 2025-03-20 18:47 | Emergency (ER) | payer OTHER, SELFPAY ==
[2025-03-20 18:48] VITALS: BP 135/109; PULSE 85; RESP 14; TEMP 36.6; O2SAT 99; BMI 24.9
--- NOTE | 2025-03-20 19:20 | RAD_ITS ---
PROCEDURE: TOE(S) MIN 2 VIEWS 03/20/2025 REASON FOR EXAM: INJURY TECHNIQUE: Procedure Code: RADTO Modality: DX Procedure: TOE(S) MIN 2 VIEWS Laterality: Right FINDINGS: No visible fracture. Normal alignment. Soft tissues are unremarkable. RAD/Toe(s) Min 2 Views IMPRESSION: No acute fracture or dislocation in the right foot phalanges. Reading Location: [id number]
--- OUTSIDE RECORDS SUMMARY | 2025-03-20 20:52 | XMS RPT_ITS | CCD ---
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 with decadron PO. Pt much improved. Will continue albuterol MDI with spacer at home as needed. Her presentation is consistant with viral illness - possibly influenza vs. other viral illness. Will treat with supportive care including tylenol, ibuprofen and fluids. She will be discharged home to follow up with her PCP if fever persists for more than 2-3 more days. Reasons to seek medical care or return to the ED were discussed with the patient. MDM / Disposition / Plan MDM SIGNATURE: MD Isaiah Darby 07/31/18 1658 [facility] XR CHEST 2V FRONTAL/LATon XR CHEST 2V FRONTAL/LAT * * *Final Report* * * DATE OF EXAM: Jul 30 2018 1:32PM HCX 5291 - XR CHEST 2V FRONTAL/LAT / PROCEDURE REASON: Chest pain * * * * Physician Interpretation * * * * RESULT: EXAMINATION: CHEST RADIOGRAPH (2 VIEW FRONTAL and LATERAL) CLINICAL HISTORY: Chest pain, MQ: XC2_5 Comparison: None RESULT: Lines, tubes, and devices: None. Lungs and pleura: No focal consolidation, sizable pleural effusion, or pneumothorax is identified. Cardiomediastinal silhouette: Normal cardiomediastinal silhouette. Other: . Nipple shadow versus stool debris overlies the left upper quadrant. IMPRESSION: No acute radiographic abnormality. Transcribed Using Voice Recognition Transcribe Date/Time: Jul 30 2018 1:38P Dictated by: SAM COBURN MD This examination was interpreted and the report reviewed and electronically signed by: SAM COBURN MD on Jul 30 2018 1:38PM EST [id number] [facility] Vital Signs Date Time Vital Sign Value Performing Clinician Ema nelson 08-31-2022 13:15-0400 Body height 167.64 cm DO [employer] DO [employer] 08-31-2022 13:15-0400 Body mass index (BMI) [Ratio] 25.8 kg/m2 DO [employer] DO [employer] 08-31-2022 13:15-0400 Body weight 72.7 kg DO [employer] DO [employer] 10-08-2019 08:51-0400 Body Temperature 99.3 [degF] [facility] [employer] 10-08-2019 08:51-0400 BP Diastolic 82 mm[Hg] [facility] 10-08-2019 08:51-0400 BP Systolic 140 mm[Hg] [facility] 10-08-2019 08:51-0400 Height 162.6 cm [facility] 10-08-2019 08:51-0400 Pulse (Heart Rate) 90 /min [facility] 10-08-2019 08:51-0400 Pulse Oximetry 97 % [facility] Encounters Encounter Date Encounter Type Care Provider Facility Start: 12-03-2023 End: 12-03-2023 ambulatory [facility] Start: 11-05-2023 Emergency department patient visit KEVEN PINEDO Facility:[facility] Start: 10-30-2023 End: 10-30-2023 ambulatory [facility] Start: 08-21-2023 End: 08-21-[address] [facility] Start: 08-16-2023 End: 08-17-2023 ambulatory [facility] Start: 07-24-2023 End: 07-24-2023 ambulatory [facility] Start: 04-13-2023 End: 04-13-2023 ambulatory [facility] Start: 03-07-2023 End: 03-07-2023 ambulatory [facility] Start: 08-31-2022 End: 08-31-[address] Zander Richards Facility:UNKNOWN Start: 11-07-2019 End: 11-07-2019 Subsequent hospital visit by physician Jay Mosher Work Phone: [employer] [facility] [place] Start: 10-08-2019 End: 10-08-2019 Office outpatient new 45 minutes Jay Mosher Work Phone: [employer] [facility] Comment on above: Cervicalgia (Primary Dx); Dorsalgia; Paresthesia of both hands; Bilateral carpal tunnel syndrome; Disorder of bone and cartilage; Bilateral wrist pain; Bilateral hand pain; Weakness of both hands; Chronic pain of both knees; Chondromalacia of both patellae; Bipolar 2 disorder; Fatigue, unspecified type; 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) Start: 07-30-2018 End: 07-30-2018 Emergency department patient visit ISAIAH Kruse [facility] DO Zander Richards DO [facility] Procedures Date Procedure Procedure Detail Performing Clinician Start: 08-21-2023 MR BRAIN W AND WO IV CONTRAST FRITZ STOLL Start: 08-16-2023 EEG FRITZ SPRINGER Start: 03-07-2023 GRICELDA-WITH REFLEX TO ROSEANN DENZEL VEERAVALLI Start: 03-07-2023 C-reactive protein DENZEL VEERAVALLI Start: 03-07-2023 CBC W Auto Different ial panel - Blood DENZEL VEERAVALLI Start: 03-07-2023 Comprehensive metabo lic 2000 panel - Serum or Plasma DENZEL VEERAVALLI Start: 03-07-2023 Cyanocobalamin vitamin b-12 DENZEL VEERAVALLI Start: 03-07-2023 FOLATE DENZEL DREW JUMA Start: 03-07-2023 Hemoglobin A1c/Hemoglobin.total in Blood DENZEL VEERAVALLI Start: 03-07-2023 TSH WITH REFLEX TO F REE T4 IF ABNORMAL DENZEL VEERAVALLI Start: 03-07-2023 VITAMIN D 25-HYDROXY,TOTAL DENZEL VEERAVALLI Start: 03-07-2023 FLU VACCINE (IIV4) G REATER THAN OR EQUAL TO 3YO PRESERVATIVE FREE DENZEL VEERAVALLI Start: 11-07-2019 EMG AND NERVE CONDUC TION (SCANNED) Jay Mosher Work Phone: Start: 11-07-2019 GENERAL PROCEDURE Stefan Galvez Work Phone: Plan of Treatment Date Care Activity Detail Author Start: 02-17-2020 Influenza vaccination INFLUENZA VACCINE (Season Ended) [facility] Start: 11-21-2019 End: 11-21-2019 Rehab Services Visit [facility] Occupational Therapy [facility] Start: 11-17-2019 End: 11-17-2019 Rehab Services Visit [facility] Occupational Therapy [facility] Start: 11-14-2019 End: 11-14-2019 Rehab Services Visit [facility] Occupational Therapy [facility] Start: 10-15-2019 End: 10-07-2020 Electromyography EMG & NERVE CONDUCTION Neurology Routine Cervicalgia Dorsalgia Paresthesia of both hands Bilateral carpal tunnel syndrome Disorder of bone and cartilage Bilateral wrist pain Bilateral hand pain Weakness of both hands Chronic pain of both knees Chondromalacia of both patellae Bipolar 2 disorder Fatigue, unspecified type 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) Expected: 10/15/2019, Expires: 10/07/2020 [employer] Comment on above: Expected: 10/15/2019, Expires: Start: 10-08-2019 End: 10-07-2020 GRICELDA MULTIPLEX SCRN WITH REFLEX GRICELDA MULTIPLEX SCRN WITH REFLEX Lab Routine Cervicalgia Dorsalgia Paresthesia of both hands Bilateral carpal tunnel syndrome Disorder of bone and cartilage Bilateral wrist pain Bilateral hand pain Weakness of both hands Chronic pain of both knees Chondromalacia of both patellae Bipolar 2 disorder Fatigue, unspecified type 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) Expected: 10/08/2019 (Approximate), Expires: 10/07/2020 [employer] Comment on above: Expected: 10/08/2019 (Approximate), Expi res: 10/07/2020 Start: 10-08-2019 End: 10-07-2020 ANCA INIT SCRN (ANCA, PR3AB, MPO) ANCA INIT SCRN (ANCA, PR3AB, MPO) Lab Routine Cervicalgia Dorsalgia Paresthesia of both hands Bilateral carpal tunnel syndrome Disorder of bone and cartilage Bilateral wrist pain Bilateral hand pain Weakness of both hands Chronic pain of both knees Chondromalacia of both patellae Bipolar 2 disorder Fatigue, unspecified type 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) Expected: 10/08/2019 (Approximate), Expires: 10/07/2020 [employer] Comment on above: Expected: 10/08/2019 (Approximate), Expi res: 10/07/2020 Start: 10-08-2019 End: 10-07-2020 Angiotensin converting enzyme [Catalytic activity/Vol] ANGIOTENSIN CONVERTING ENZYME Lab Routine Cervicalgia Dorsalgia Paresthesia of both hands Bilateral carpal tunnel syndrome Disorder of bone and cartilage Bilateral wrist pain Bilateral hand pain Weakness of both hands Chronic pain of both knees Chondromalacia of both patellae Bipolar 2 disorder Fatigue, unspecified type 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) Expected: 10/08/2019 (Approximate), Expires: 10/07/2020 [employer] Comment on above: Expected: 10/08/2019 (Approximate), Expi res: 10/07/2020 Start: 10-08-2019 End: 10-07-2020 CK CK Lab Routine Cervicalgia Dorsalgia Paresthesia of both hands Bilateral carpal tunnel syndrome Disorder of bone and cartilage Bilateral wrist pain Bilateral hand pain Weakness of both hands Chronic pain of both knees Chondromalacia of both patellae Bipolar 2 disorder Fatigue, unspecified type 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) Expected: 10/08/2019 (Approximate), Expires: 10/07/2020 [employer] Comment on above: Expected: 10/08/2019 (Approximate), Expi res: 10/07/2020 Start: 10-08-2019 End: 10-07-2020 Cobalamin (Vitamin B12) [Mass/Vol] VITAMIN B12 Lab Routine Cervicalgia Dorsalgia Paresthesia of both hands Bilateral carpal tunnel syndrome Disorder of bone and cartilage Bilateral wrist pain Bilateral hand pain Weakness of both hands Chronic pain of both knees Chondromalacia of both patellae Bipolar 2 disorder Fatigue, unspecified type 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) Expected: 10/08/2019 (Approximate), Expires: 10/07/2020 [employer] Comment on above: Expected: 10/08/2019 (Approximate), Expi res: 10/07/2020 Start: 10-08-2019 End: 10-07-2020 Complete blood count with white cell differential, automated CBC, EDIF, PLATELET Lab Routine Cervicalgia Dorsalgia Paresthesia of both hands Bilateral carpal tunnel syndrome Disorder of bone and cartilage Bilateral wrist pain Bilateral hand pain Weakness of both hands Chronic pain of both knees Chondromalacia of both patellae Bipolar 2 disorder Fatigue, unspecified type 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) Expected: 10/08/2019 (Approximate), Expires: 10/07/2020 [employer] Comment on above: Expected: 10/08/2019 (Approximate), Expi res: 10/07/2020 Start: 10-08-2019 End: 10-07-2020 Comprehensive metabolic 2000 panel COMPREHENSIVE METABOLIC PANEL Lab Routine Cervicalgia Dorsalgia Paresthesia of both hands Bilateral carpal tunnel syndrome Disorder of bone and cartilage Bilateral wrist pain Bilateral hand pain Weakness of both hands Chronic pain of both knees Chondromalacia of both patellae Bipolar 2 disorder Fatigue, unspecified type 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) Expected: 10/08/2019 (Approximate), Expires: 10/07/2020 [employer] Comment on above: Expected: 10/08/2019 (Approximate), Expi res: 10/07/2020 Start: 10-08-2019 End: 10-07-2020 CRP [Mass/Vol] C REACTIVE PROTEIN Lab Routine Cervicalgia Dorsalgia Paresthesia of both hands Bilateral carpal tunnel syndrome Disorder of bone and cartilage Bilateral wrist pain Bilateral hand pain Weakness of both hands Chronic pain of both knees Chondromalacia of both patellae Bipolar 2 disorder Fatigue, unspecified type 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) Expected: 10/08/2019 (Approximate), Expires: 10/07/2020 [employer] Comment on above: Expected: 10/08/2019 (Approximate), Expi res: 10/07/2020 Start: 10-08-2019 End: 10-07-2020 CYCLIC CITRULLINATE PEPTIDE AB CYCLIC CITRULLINATE PEPTIDE AB Lab Routine Cervicalgia Dorsalgia Paresthesia of both hands Bilateral carpal tunnel syndrome Disorder of bone and cartilage Bilateral wrist pain Bilateral hand pain Weakness of both hands Chronic pain of both knees Chondromalacia of both patellae Bipolar 2 disorder Fatigue, unspecified type [facility] current use of non-steroidal anti-inflammatories (NSAID) Expected: 10/08/2019 (Approximate), Expires: 10/07/2020 [employer] Comment on above: Expected: 10/08/2019 (Approximate), Expi res: 10/07/2020 Start: 10-08-2019 End: 10-07-2020 Diagnostic radiography of lumbar spine XR SPINE LUMBOSACRAL 5 VIEWS Imaging Routine Cervicalgia Dorsalgia Paresthesia of both hands Bilateral carpal tunnel syndrome Disorder of bone and cartilage Bilateral wrist pain Bilateral hand pain Weakness of both hands Chronic pain of both knees Chondromalacia of both patellae Bipolar 2 disorder Fatigue, unspecified type [facility] current use of non-steroidal anti-inflammatories (NSAID) Expected: 10/08/2019, Expires: 10/07/2020 [employer] Comment on above: Expected: 10/08/2019, Expires: 1 Start: 10-08-2019 End: 10-07-2020 Diagnostic radiography of sacroiliac joints XR SACROILIAC JOINTS MIN 3 VIEWS Imaging Routine Cervicalgia Dorsalgia Paresthesia of both hands Bilateral carpal tunnel syndrome Disorder of bone and cartilage Bilateral wrist pain Bilateral hand pain Weakness of both hands Chronic pain of both knees Chondromalacia of both patellae Bipolar 2 disorder Fatigue, unspecified type 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) Expected: 10/08/2019, Expires: 10/07/2020 [employer] Comment on above: Expected: 10/08/2019, Expires: 1 Start: 10-08-2019 End: 10-07-2020 HLA-B27 HLA-B27 Lab Routine Cervicalgia Dorsalgia Paresthesia of both hands Bilateral carpal tunnel syndrome Disorder of bone and cartilage Bilateral wrist pain Bilateral hand pain Weakness of both hands Chronic pain of both knees Chondromalacia of both patellae Bipolar 2 disorder Fatigue, unspecified type [facility] current use of non-steroidal anti-inflammatories (NSAID) Expected: 10/08/2019 (Approximate), Expires: 10/07/2020 [employer] Comment on above: Expected: 10/08/2019 (Approximate), Expi res: 10/07/2020 Start: 10-08-2019 End: 10-07-2020 VIRAL AND PE, SERUM VIRAL AND PE, SERUM Lab Routine Cervicalgia Dorsalgia Paresthesia of both hands Bilateral carpal tunnel syndrome Disorder of bone and cartilage Bilateral wrist pain Bilateral hand pain Weakness of both hands Chronic pain of both knees Chondromalacia of both patellae Bipolar 2 disorder Fatigue, unspecified type [facility] current use of non-steroidal anti-inflammatories (NSAID) Expected: 10/08/2019 (Approximate), Expires: 10/07/2020 [employer] Comment on above: Expected: 10/08/2019 (Approximate), Expi res: 10/07/2020 Start: 10-08-2019 End: 10-07-2020 LYME AB REFLEX TO WESTERN BLOT LYME AB REFLEX TO WESTERN BLOT Lab Routine Cervicalgia Dorsalgia Paresthesia of both hands Bilateral carpal tunnel syndrome Disorder of bone and cartilage Bilateral wrist pain Bilateral hand pain Weakness of both hands Chronic pain of both knees Chondromalacia of both patellae Bipolar 2 disorder Fatigue, unspecified type [facility] current use of non-steroidal anti-inflammatories (NSAID) Expected: 10/08/2019 (Approximate), Expires: 10/07/2020 [employer] Comment on above: Expected: 10/08/2019 (Approximate), Expi res: 10/07/2020 Start: 10-08-2019 End: 10-07-2020 Magnesium [Mass/Vol] MAGNESIUM Lab Routine Cervicalgia Dorsalgia Paresthesia of both hands Bilateral carpal tunnel syndrome Disorder of bone and cartilage Bilateral wrist pain Bilateral hand pain Weakness of both hands Chronic pain of both knees Chondromalacia of both patellae Bipolar 2 disorder Fatigue, unspecified type 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) Expected: 10/08/2019 (Approximate), Expires: 10/07/2020 [employer] Comment on above: Expected: 10/08/2019 (Approximate), Expi res: 10/07/2020 Start: 10-08-2019 End: 10-07-2020 Radiography of cervical spine XR SPINE CERVICAL 4 VIEWS Imaging Routine Cervicalgia Dorsalgia Paresthesia of both hands Bilateral carpal tunnel syndrome Disorder of bone and cartilage Bilateral wrist pain Bilateral hand pain Weakness of both hands Chronic pain of both knees Chondromalacia of both patellae Bipolar 2 disorder Fatigue, unspecified type [facility] current use of non-steroidal anti-inflammatories (NSAID) Expected: 10/08/2019, Expires: 10/07/2020 [employer] Comment on above: Expected: 10/08/2019, Expires: Start: 10-08-2019 End: 10-07-2020 Radiography of hand XR HANDS-RHEUMATOLOGY EVAL ONLY Imaging Routine Cervicalgia Dorsalgia Paresthesia of both hands Bilateral carpal tunnel syndrome Disorder of bone and cartilage Bilateral wrist pain Bilateral hand pain Weakness of both hands Chronic pain of both knees Chondromalacia of both patellae Bipolar 2 disorder Fatigue, unspecified type 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) Expected: 10/08/2019, Expires: 10/07/2020 [employer] Comment on above: Expected: 10/08/2019, Expires: Start: 10-08-2019 End: 04-22-2021 Radiography of thoracic spine XR SPINE THORACIC 2 VIEWS Imaging Routine Cervicalgia Dorsalgia Paresthesia of both hands Bilateral carpal tunnel syndrome Disorder of bone and cartilage Bilateral wrist pain Bilateral hand pain Weakness of both hands Chronic pain of both knees Chondromalacia of both patellae Bipolar 2 disorder Fatigue, unspecified type [facility] current use of non-steroidal anti-inflammatories (NSAID) Expected: 10/08/2019, Expires: 10/07/2020 [employer] Comment on above: Expected: 10/08/2019, Expires: 1 Start: 10-08-2019 End: 10-07-2020 Radiography of wrist [employer] Comment on above: Expected: 10/08/2019, Expires: 1 Start: 10-08-2019 End: 10-07-2020 Radiologic examination of knee [employer] Comment on above: Expected: 10/08/2019, Expires: 1 Start: 10-08-2019 End: 10-07-2020 RED CELL FOLATE RED CELL FOLATE Blood Bank Routine Cervicalgia Dorsalgia Paresthesia of both hands Bilateral carpal tunnel syndrome Disorder of bone and cartilage Bilateral wrist pain Bilateral hand pain Weakness of both hands Chronic pain of both knees Chondromalacia of both patellae Bipolar 2 disorder Fatigue, unspecified type 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) Expected: 10/08/2019 (Approximate), Expires: 10/07/2020 [employer] Comment on above: Expected: 10/08/2019 (Approximate), Expi res: 10/07/2020 Start: 10-08-2019 End: 10-07-2020 RHEUMATOID FACTOR RHEUMATOID FACTOR Lab Routine Cervicalgia Dorsalgia Paresthesia of both hands Bilateral carpal tunnel syndrome Disorder of bone and cartilage Bilateral wrist pain Bilateral hand pain Weakness of both hands Chronic pain of both knees Chondromalacia of both patellae Bipolar 2 disorder Fatigue, unspecified type [facility] current use of non-steroidal anti-inflammatories (NSAID) Expected: 10/08/2019 (Approximate), Expires: 10/07/2020 [employer] Comment on above: Expected: 10/08/2019 (Approximate), Expi res: 10/07/2020 Start: 10-08-2019 End: 10-07-2020 SEDIMENTATION RATE, AUTOMATED SEDIMENTATION RATE, AUTOMATED Lab Routine Cervicalgia Dorsalgia Paresthesia of both hands Bilateral carpal tunnel syndrome Disorder of bone and cartilage Bilateral wrist pain Bilateral hand pain Weakness of both hands Chronic pain of both knees Chondromalacia of both patellae Bipolar 2 disorder Fatigue, unspecified type 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) Expected: 10/08/2019 (Approximate), Expires: 10/07/2020 [employer] Comment on above: Expected: 10/08/2019 (Approximate), Expi res: 10/07/2020 Start: 10-08-2019 End: 10-07-2020 T-TRANSGLUTAMINASE IGA AB T-TRANSGLUTAMINASE IGA AB Lab Routine Cervicalgia Dorsalgia Paresthesia of both hands Bilateral carpal tunnel syndrome Disorder of bone and cartilage Bilateral wrist pain Bilateral hand pain Weakness of both hands Chronic pain of both knees Chondromalacia of both patellae Bipolar 2 disorder Fatigue, unspecified type 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) Expected: 10/08/2019 (Approximate), Expires: 10/07/2020 [employer] Comment on above: Expected: 10/08/2019 (Approximate), Expi res: 10/07/2020 Start: 10-08-2019 End: 10-07-2020 TSH Qn TSH Lab Routine Cervicalgia Dorsalgia Paresthesia of both hands Bilateral carpal tunnel syndrome Disorder of bone and cartilage Bilateral wrist pain Bilateral hand pain Weakness of both hands Chronic pain of both knees Chondromalacia of both patellae Bipolar 2 disorder Fatigue, unspecified type [facility] current use of non-steroidal anti-inflammatories (NSAID) Expected: 10/08/2019 (Approximate), Expires: 10/07/2020 [employer] Comment on above: Expected: 10/08/2019 (Approximate), Expi res: 10/07/2020 Start: 10-08-2019 End: 10-07-2020 Urate [Mass/Vol] URIC ACID Lab Routine Cervicalgia Dorsalgia Paresthesia of both hands Bilateral carpal tunnel syndrome Disorder of bone and cartilage Bilateral wrist pain Bilateral hand pain Weakness of both hands Chronic pain of both knees Chondromalacia of both patellae Bipolar 2 disorder Fatigue, unspecified type 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) Expected: 10/08/2019 (Approximate), Expires: 10/07/2020 [employer] Comment on above: Expected: 10/08/2019 (Approximate), Expi res: 10/07/2020 Start: 10-08-2019 End: 10-07-2020 VITAMIN B1 VITAMIN B1 Lab Routine Cervicalgia Dorsalgia Paresthesia of both hands Bilateral carpal tunnel syndrome Disorder of bone and cartilage Bilateral wrist pain Bilateral hand pain Weakness of both hands Chronic pain of both knees Chondromalacia of both patellae Bipolar 2 disorder Fatigue, unspecified type 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) Expected: 10/08/2019 (Approximate), Expires: 10/07/2020 [employer] Comment on above: Expected: 10/08/2019 (Approximate), Expi res: 10/07/2020 Start: 10-08-2019 End: 10-07-2020 VITAMIN B6 VITAMIN B6 Lab Routine Cervicalgia Dorsalgia Paresthesia of both hands Bilateral carpal tunnel syndrome Disorder of bone and cartilage Bilateral wrist pain Bilateral hand pain Weakness of both hands Chronic pain of both knees Chondromalacia of both patellae Bipolar 2 disorder Fatigue, unspecified type [facility] current use of non-steroidal anti-inflammatories (NSAID) Expected: 10/08/2019 (Approximate), Expires: 10/07/2020 [employer] Comment on above: Expected: 10/08/2019 (Approximate), Expi res: 10/07/2020 Start: 10-08-2019 End: 10-07-2020 VITAMIN D (25-HYDROXY,TOTAL) VITAMIN D (25-HYDROXY,TOTAL) Lab Routine Cervicalgia Dorsalgia Paresthesia of both hands Bilateral carpal tunnel syndrome Disorder of bone and cartilage Bilateral wrist pain Bilateral hand pain Weakness of both hands Chronic pain of both knees Chondromalacia of both patellae Bipolar 2 disorder Fatigue, unspecified type 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) Expected: 10/08/2019 (Approximate), Expires: 10/07/2020 [employer] Comment on above: Expected: 10/08/2019 (Approximate), Expi res: 10/07/2020 Start: 10-08-2019 End: 10-07-2020 VITAMIN D, (1,25 DIHYDROXY) VITAMIN D, (1,25 DIHYDROXY) Lab Routine Cervicalgia Dorsalgia Paresthesia of both hands Bilateral carpal tunnel syndrome Disorder of bone and cartilage Bilateral wrist pain Bilateral hand pain Weakness of both hands Chronic pain of both knees Chondromalacia of both patellae Bipolar 2 disorder Fatigue, unspecified type 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) Expected: 10/08/2019 (Approximate), Expires: 10/07/2020 [employer] Comment on above: Expected: 10/08/2019 (Approximate), Expi res: 10/07/2020 Start: 10-08-2019 End: 10-07-2020 X-ray of both knees XR KNEES BILATERAL STANDING 1 VIEW Imaging Routine Cervicalgia Dorsalgia Paresthesia of both hands Bilateral carpal tunnel syndrome Disorder of bone and cartilage Bilateral wrist pain Bilateral hand pain Weakness of both hands Chronic pain of both knees Chondromalacia of both patellae Bipolar 2 disorder Fatigue, unspecified type 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) Expected: 10/08/2019, Expires: 10/07/2020 [employer] Comment on above: Expected: 10/08/2019, Expires: Start: 2019 Screening for malignant neoplasm of cervix CERVICAL CANCER SCREENING DISCUSSION [facility] Start: 2017 Third diphtheria, tetanus and acellular pertussis (DTaP) vaccination TDAP (ADULT) [facility] Start: 2016 Tetanus vaccination TETANUS [facility] Start: 2014 Screening for Chlamydia trachomatis CHLAMYDIA SCREEN [facility] Start: 2011 HIV screening HIV SCREENING DISCUSSION [facility] Start: 2009 Vaccination for human papillomavirus [facility] Start: 1998 GONORRHEA SCREEN GONORRHEA SCREEN [facility] Needle emg ea extrem ity w/paraspinl area limited MO NEEDLE EMG EA EXTREMITY W/PARASPINL AREA LIMITED MO Charge Routine Bilateral hand pain Ordered: 11/07/2019 [employer] Comment on above: Ordered: 11/07/2019 Nerve conduction malu dies 7-8 studies [place] NERVE CONDUCTION STUDIES 7-8 STUDIES MO Charge Routine Bilateral hand pain [facility]: 11[facility]07/2019 [facility] Comment on above: Ordered: 11/07/2019 Payers Date Payer Category Payer Private Health Insurance [id number] 2019 Unknown ANGELA MILLER HM O PPO POS xxxxxxxxxxxxxxx 2019-Present xxxxxxxxxxxxxxx [id number] 2019 Unknown ANGELA MILLER HM O PPO POS [id number] 2019-Present [id number] 2018 Unknown [id number] 1998 Unknown [id number] 693 1998 Unknown [id number] 1245 1998 Unknown [id number]. 1244 1998 Unknown [id number] 1244 1998 Unknown [id number]. 1244 1998 Unknown [id number]. 1244 1998 Unknown [id number]. 1242 1998 Unknown [id number]. 1242 1998 Unknown [id number] 1242 Self-pay Social History Date Type Detail Facility Start: 10-08-2019 Tobacco smoking status HIIS Never sm oker [facility] Start: 10-08-2019 Alcohol intake Current drinke r of alcohol (finding) [employer] [facility] Sex Assigned At Not on file [employer] Exposure to SARS-CoV -2 (event) Not sure [employer] Start: 10-08-2019 Tobacco use and exposure Never used [employer] Start: 08-31-2022 Not Known [facility] Goals Date Patient Goal Desired Activity /State Comment on above: 1. The patient will safely, correctly and independently demonstrate the ability to perform a progressive HEP to achieve maximum rehabilitation potential and prevent this conditions from recurring. 2. The patient will report that pain is abolished or reduced to a tolerable level at rest and with activities such as reaching overhead, reaching behind back, lifting, gripping, carrying objects, or throwing. 3. The patient will achieve symmetrical or functional ROM to perform desired self-care, housework, work recreational, or sports activities. 4. The patient will increase UE strength in deficit areas to greater than or equal to 4+ out of 5 to return to desired activity levels. 5. The patient will increase emblem cutter and pinch strength to increase participation in ADLs/IADLs. 6. The patient will report increased ADL independence by the ability to complete all daily activities without the report of pain, decreased strength or decreased ROM interfering. 7. Pt will increase FMC to increase participation and Russell with ADLs/IADLs. Comment on above: 1. Pt will be indepe ndent in a home exercise program to improve/maintain cervical and thoracic ROM, postural flexibility, and muscular strength of the upper body. 2. Pt will have a decrease subjective symptoms in reported area of pain to a rating of 0-1/10 or to an acceptable tolerable level allowing the patient to sleep, sit for sustained periods and return to prior level of activity. 3. Pt will be able to demonstrate cervical AROM in all planes of motion without pain and to normative values related to age, gender, and body type to allow the patient to perform normal ADL and recreational activities. 4. Pt will demonstrate improved strength of the deep neck flexors to normative values to provide greater active support of the head and neck. 5. Pt have normal cheondoism of shoulder AROM/PROM and strength of the shoulder and scapular musculature to improve pt's ability to use UE without symptoms.. Hospital Discharge instructions 08-31-2022 Note Date & Type Note Facility 08-31-2022 Hospital Discharge instructions ED Discharge Education Evaluation from 08/31/2022 2:38 PM:Discharge Instruction : Patient/Significant Other Received Written Instructions,Patient/Significant Other Verbalized Understanding of Discharge Instructions,Reviewed Discharge Instructions with Patient/Significant OtherEduc Topic #1 : Smoking CessationBarriers to Learning : No BarriersTeaching Method : Reading Materials,DiscussEvaluation Method : Written,Verbal Patient Transfer Information from 08/31/2022 11:35 AM:LOC : Alert Physician Follow-up Plan/Appointments from 08/31/2022 2:21 PM:Patient stated Primary Care Provider : PCP, NONE (PCP) ([id number]) - Medical [facility] Note Note Date & Type Note Facility Clinical Notes S Evaluation + Plan note Note Date & Type Note Facility Evaluation + Plan note S Summary Purpose Family History No Family History Records FoundNo Family History Records FoundNo Family History Records FoundNo Family History Records FoundNo Family History Records FoundNo Family History Records Found Advance Directives No Advanced Directives Records FoundNo Advanced Directives Records FoundNo Advanced Directives Records FoundNo Advanced Directives Records FoundNo Advanced Directives Records FoundNo Advanced Directives Records Found Reason for Referral Status Reason Specialty Diagnoses / Procedures Re ferred By Contact Referred To Contact Closed Neurology Diagnoses Cervicalgia Dorsalgia Paresthesia of both hands Bilateral carpal tunnel syndrome Disorder of bone and cartilage Bilateral wrist pain Bilateral hand pain Weakness of both hands Chronic pain of both knees Chondromalacia of both patellae Bipolar 2 disorder Fatigue, unspecified type [facility] current use of non-steroidal anti-inflammatories (NSAID) Jay Mosher Jr., [address] [place] [address] Jarred Galvez MD [address] [place] [id number] Status Reason Specialty Diagnoses / Procedures Re ferred By Contact Referred To Contact Auth Not Needed Diagnoses Cervicalgia Dorsalgia Paresthesia of both hands Bilateral carpal tunnel syndrome Disorder of bone and cartilage Bilateral wrist pain Bilateral hand pain Weakness of both hands Chronic pain of both knees Chondromalacia of both patellae Bipolar 2 disorder Fatigue, unspecified type [facility] current use of non-steroidal anti-inflammatories (NSAID) Procedures EMG & NERVE CONDUCTION Jay Mosher Jr., DO [address] [place] [address] Jarred Galvez MD [address] [place] [address] Status Reason Specialty Diagnoses / Procedures Referred By Contact Referred To Contact New Request Occupational Therapy Diagnoses Cervicalgia Dorsalgia Paresthesia of both hands Bilateral carpal tunnel syndrome Disorder of bone and cartilage Bilateral wrist pain Bilateral hand pain Weakness of both hands Chronic pain of both knees Chondromalacia of both patellae Bipolar 2 disorder Fatigue, 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 Status Reason Specialty Diagnoses / Procedures Referred By Contact Referred To Contact New Request Physical Therapy Diagnoses Cervicalgia Dorsalgia Paresthesia of both hands Bilateral carpal tunnel syndrome Disorder of bone and cartilage Bilateral wrist pain Bilateral hand pain Weakness of both hands Chronic pain of both knees Chondromalacia of both patellae Bipolar 2 disorder Fatigue, unspecified type [facility] current use of non-steroidal anti-inflammatories (NSAID) Jay Mosher Jr., [address] [place] [address] History of Present Illness * Jay Mosher Jr., - 10/08/2019 8:45 AM EDT History of Present Illness Presence of Pain: complains of pain/discomfort Pain Location: (Everywhere) Select Pain Scale: DVPRS (Defense and Veterans Pain Rating Scale) (Adult- Cognitively Intact) DVPRS: Rest: 3- mild pain DVPRS: Activity: 3- mild pain Select Pain Scale: DVPRS (Defense and Veterans Pain Rating Scale) (Adult- Cognitively Intact) Pain Frequency: constant Pain Quality: aching Due to complex issues I spent at least 36 minutes in face to face time with patient, more than 50% of that time was spent on counseling and coordination of care. Patient is beingevaluated for an unstable chronic illness that increase morbidity and mortality. Due to patient's coexisting health problems and co-morbidities treatment is and will be very difficult. Patient seen as add on patient today. Patient is a self referral for for severe joint pain. Patient states she constantly has severe joint pain everyday. Patient states she will get swelling in her JEANINE knee and ankle. Patient states her joint pain started when she was 14yo and started to get worse when she was 17yo. Patient states her JEANINE knee, ankle, back are the worse. Patient has been having trouble with a lot of pain and is here to see if she has an autoimmune disease. Patient has been having pain since 2014. Neck and back pain. B/L hand and wrist pain and paresthesias and weakness. Review of Systems Constitutional: Positive for fatigue. HENT: Negative. Eyes: Negative. Respiratory: Negative. Cardiovascular: Negative. Gastrointestinal: Negative. Endocrine: Negative. Genitourinary: Negative. Musculoskeletal: Positive for arthralgias, back pain, neck pain and neck stiffness. Skin: Negative. Neurological: Positive for weakness and numbness. Hematological: Negative. Psychiatric/Behavioral: Bipolar 2 Vitals: There were no vitals taken for this visit. Physical Exam Vitals signs and nursing note reviewed. Constitutional: Appearance: Normal appearance. HENT: Head: Normocephalic and atraumatic. Comments: blue hair Right Ear: External ear normal. Left Ear: External ear normal. Nose: Nose normal. Mouth/Throat: Comments: mask Eyes: Extraocular Movements: Extraocular movements intact. Conjunctiva/sclera: Conjunctivae normal. Pupils: Pupils are equal, round, and reactive to light. Comments: glasses Neck: Musculoskeletal: Normal range of motion and neck supple. Cardiovascular: Rate and Rhythm: Normal rate and regular rhythm. Pulses: Carotid pulses are 2+ on the right side and 2+ on the left side. Radial pulses are 2+ on the right side and 2+ on the left side. Dorsalis pedis pulses are 2+ on the right side and 2+ on the left side. Posterior tibial pulses are 2+ on the right side and 2+ on the left side. Heart sounds: Normal heart sounds. Comments: No subclavian or carotid bruits Pulmonary: Effort: Pulmonary effort is normal. Breath sounds: Normal breath sounds. Abdominal: General: Bowel sounds are normal. Palpations: Abdomen is soft. Musculoskeletal: Right shoulder: Normal. Left shoulder: Normal. Right elbow: Normal. Left elbow: Normal. Right wrist: She exhibits decreased range of motion and tenderness. Left wrist: She exhibits decreased range of motion and tenderness. Right hip: Normal. Left hip: Normal. Right knee: She exhibits decreased range of motion. Tenderness found. Left knee: She exhibits decreased range of motion. Tenderness found. Right ankle: Normal. Left ankle: Normal. Cervical back: She exhibits decreased range of motion and tenderness. Thoracic back: She exhibits tenderness. Lumbar back: She exhibits decreased range of motion. Right upper arm: Normal. Left upper arm: Normal. Right forearm: Normal. Left forearm: Normal. Right hand: She exhibits decreased range of motion and tenderness. Left hand: She exhibits decreased range of motion and tenderness. Right upper leg: Normal. Left upper leg: Normal. Right lower leg: Normal. Left lower leg: Normal. Legs: Right foot: Decreased range of motion. Left foot: Decreased range of motion. Feet: Skin: General: Skin is warm and dry. Neurological: Mental Status: She is alert and oriented to person, place, and time. Cranial Nerves: Cranial nerves are intact. Sensory: Sensory deficit present. Motor: Weakness present. Coordination: Coordination is intact. Gait: Gait is intact. Deep Tendon Reflexes: Reflexes are normal and symmetric. Reflex Scores: Tricep reflexes are 2+ on the right side and 2+ on the left side. Bicep reflexes are 2+ on the right side and 2+ on the left side. Brachioradialis reflexes are 2+ on the right side and 2+ on the left side. Patellar reflexes are 2+ on the right side and 2+ on the left side. Achilles reflexes are 2+ on the right side and 2+ on the left side. Comments: Decreased black off worker strength both franco. Positive tinel's L wrist and B/L phalen's Psychiatric: Mood and Affect: Mood normal. Behavior: Behavior normal. Thought Content: Thought content normal. Judgment: Judgment normal. Neurologic Exam Mental Status Oriented to person, place, and time. Cranial Nerves CN III, IV, Pupils are equal, round, and reactive to light. Gait, Coordination, and Reflexes Gait Gait: normal Reflexes Right brachioradialis: 2+ Left brachioradialis: 2+ Right biceps: 2+ Left biceps: 2+ Right triceps: 2+ Left triceps: 2+ Right patellar: 2+ Left patellar: 2+ Right achilles: 2+ Left achilles: 2+ Assessment and Plan Encounter Diagnoses Name Primary? Cervicalgia Yes Dorsalgia Paresthesia of both hands Bilateral carpal tunnel syndrome Disorder of bone and cartilage Bilateral wrist pain Bilateral hand pain Weakness of both hands Chronic pain of both knees Chondromalacia of both patellae Bipolar 2 disorder Fatigue, unspecified type [facility] current use of non-steroidal anti-inflammatories (NSAID) 1. Time was spent with the patient today in education in re: to all their medical conditions. A complete H&P&ROS was obtained and is either in this note or in the EHR. Please do not hesitate to contact me with any questions or concerns re: this patient. Past History Past medical, surgical, family, and social histories have been reviewed and updated with the patient today and are located elsewhere in the medical record. 2. Thank you for allowing me to participate in the care of your patient. With your permission I would like to F/U with your patient. 3. Differenetial Diagnosis includes but is not limited to Autoimmune Disease, Connective Tissue Disease, Collagen Vascular Disorder, Infection, and Neoplasm. 4. Lab and x-ray and F/U with me in in 3 weeks EMG 5. Rx given for PT/OT 6. Stop OTC IBP 7. Samples and Rx given for Duexis 8. Monitor CBC/LFT/Renal func every 6-12 months as long as patient is on daily NSAID 9. If neck pain continues rec: eval by spinal surgery and/or chronic pain management 10. If patient continues to have trouble with back pain would rec: eval by spinal surgery and/or chronic pain management 11. If wrist and hand and knee problems continue rec: ortho eval 12. patient instructed on isometric knee exercises 13. Patient given educational material on OA in the from of a pamphlet from the arthritis foundation. Patient told that PT and keeping ideal body wt would be the cornerstone of treatment 14. Educational material was given to the patient on CTS in the form of a pamphlet from the arthritis foundation 15. EMG/NCV B/L UE B/L hand and wrist pain and paresthesias and weakness R/O CTS - patient has splints at home she is going to wear. 16. Rx given for B/L wrist splints for B/L CTS 17. If CTS problems continue rec: surgical eval documented in this encounter Assessments Diagnosis Cervicalgia Dorsalgia Pain in thoracic spine Paresthesia of both hands Bilateral carpal tunnel syndrome Carpal tunnel syndrome Disorder of bone and cartilage Disorder of bone and cartilage, unspecified Bilateral wrist pain Bilateral hand pain Pain in limb Weakness of both hands Chronic pain of both knees Chondromalacia of both patellae Chondromalacia of patella Bipolar 2 disorder Other bipolar disorders Fatigue, unspecified type [facility] current use of non-steroidal anti-inflammatories (NSAID) Encounter for long-term (current) use of non-steroidal anti-inflammatories Diagnosis Cervicalgia Dorsalgia Pain in thoracic spine Paresthesia of both hands Bilateral carpal tunnel syndrome Carpal tunnel syndrome Disorder of bone and cartilage Disorder of bone and cartilage, unspecified Bilateral wrist pain Bilateral hand pain Pain in limb Weakness of both hands Chronic pain of both knees Chondromalacia of both patellae Chondromalacia of patella Bipolar 2 disorder Other bipolar disorders Fatigue, 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 DATE CREATED AUTHOR AUTHOR'S ORGANIZ ATION 11/01/2023 [facility] DATE CREATED AUTHOR AUTHOR'S ORGANIZ ATION 11/06/2023 [facility] DATE CREATED AUTHOR AUTHOR'S ORGANIZ ATION 01/06/2024 [facility] Reason for Visit (unrecogniz ed section and content) Reason Comments Joint Pain Patient is a self re ferral for for severe joint pain. Patient states she constantly has severe joint pain everyday. Patient states she will get swelling in her JEANINE knee and ankle. Patient states her joint pain started when she was 14yo and started to get worse when she was 17yo. Patient states her JEANINE knee, ankle, back are the worse. Status Reason Specialty Diagnoses / Procedures Re ferred By Contact Referred To Contact Closed Diagnoses Cervicalgia Dorsalgia Paresthesia of both hands Bilateral carpal tunnel syndrome Disorder of bone and cartilage Bilateral wrist pain Bilateral hand pain Weakness of both hands Chronic pain of both knees Chondromalacia of both patellae Bipolar 2 disorder Fatigue, unspecified type [facility] current use of non-steroidal anti-inflammatories (NSAID) Procedures EMG & NERVE CONDUCTION Vidhi Kat, Jay Cohen DO [address] [place] [address] Jarred Galvez MD [address] [place] [address] Goals (unrecognized section and content) FOR RECORDS PERTAINING TO PATIENTS WHO ARE OR HAVE BEEN ENROLLED IN A CHEMICAL DEPENDENCY/SUBSTANCEABUSE PROGRAM, SOME INFORMATION MAY BE OMITTED. This clinical summary was aggregated from multiple sources. Caution should be exercised in using it in the provision of clinical care. This summary normalizes information from multiple sources, and as a consequence, information in this document may materially change the coding, format and clinical context of patient data. In addition, data may be omitted in some cases. CLINICAL DECISIONS SHOULD BE BASED ON THE PRIMARY CLINICAL RECORDS. [employer] [facility]. provides no warranty or guarantee of the accuracy or completeness of information in this document.
--- NOTE | 2025-03-20 21:49 | CM.ED ---
Social Work Reason for visit: No PCP Patient confirmed that she does not have a PCP. [facility] provider list given, no further needs at this time. Loretta Veliz, MED CARE MANAGER, [employer]
--- NOTE | 2025-03-20 22:12 | ED.VIS.LOWEX ---
HPI History of Present Illness Chief Complaint: Lower Extremity Injury Narrative Narrative: Patient is a 24-year-old female no signal past medical history presenting with 3 days of right fifth toe pain after an injury. She states it is worse when she is on her feet and she had to leave work today (works at [employer]). States she also has to walk to and from work. I was concerned it could be broken. Has been taking NSAIDs with no significant relief. Denies any numbness or tingling. No other injuries reported. No other complaints or concerns at this time. PFSH PFSH Medical History no medical history Home Medications ?Medication ?Instructions ?Recorded ?Last Taken ?Type carbamazepine 100 mg 100 mg PO DAILY 12/09/19 Unknown History capsule,extended release [id number] Allergy/AdvReac Type Severity Reaction Status Date / Time fluoxetine (From LoSozac) AdvReac Other Verified 03/20/25 18:48 Family History no significant family his Surgical History no surgical history Social History Smoking Status: Former smoker ROS ROS ED Constitutional Constitutional ED: Denies chills or fever(s) Musculoskeletal Musculoskeletal: Reports other Details: Right fifth toe pain Integumentary Denies Abrasions or rash Neurologic Neurologic: Denies paresthesias or weakness Hematologic/Lymphatic Hematologic/Lymphatic: Denies easy bleeding or easy bruising EXAM Physical Exam Const Vital Signs: 03/20/25 18:48 Temperature 97.9 F Temperature Source Oral Pulse Rate 85 Respiratory Rate 14 Blood Pressure 135/109 H Blood Pressure Mean 117 Pulse Ox 99 Oxygen Delivery Method Room Air Positive well nourished and well developed General Appearance ED: well developed and NAD HEENT normocephalic Chest Wall inspection of chest normal Resp normal respiratory effort Cardio regular rate and regular rhythm Cardio Narrative: 2+ DP pulses Extremity Extremity Narrative: No noted deformity of the right foot. Tenderness palpation of the right fifth toe with no deformity present. No ecchymosis present. No tenderness along the metatarsals. Neuro oriented x3, moves all extremities and no sensory deficits noted Sensorium / Orientation: alert Psych mental status grossly normal Skin no wounds Rashes: no rashes Trauma: Negative for abrasion MDM MDM MDM Narrative Medical decision making narrative: Patient evaluated for ongoing pain and discomfort of her right fifth toe after an injury 3 days ago. Critical x-ray obtained. Differential includes fracture, contusion and dislocation. X-ray viewed by myself as well as radiology does not show any acute bony abnormalities. Patient counseled and continued conservative management including mary ellen tape, NSAIDs and ice as well as elevation. Given a work note for tonight (had to leave work) and tomorrow. Given return precautions. Given outpatient information for podiatry in case she is not improving. Discharged home in stable condition. She is agreeable to plan of care Radiography Diagnostic Testing: Clinical Impression(s) from Imaging Studies Toe X-Ray 03/20/25 19:20 IMPRESSION: No acute fracture or dislocation in the right foot phalanges. Reading Location: [facility] Discharge Plan Triage Chief Complaint: Lower Extremity Injury ED Provider: Kristy Leggett Dx/Rx/DC Orders Clinical Impression: Contusion of fifth toe, right Instructions: ED Finger or Toe Contusion Prescriptions: No Action carbamazepine 100 MG capsule, ER multiphase 12 hr 100 mg PO DAILY Stand Alone Forms: ED Work / School Excuse Primary Care Provider: Care Physician,No Primary Referrals: Evangelist Kinsey MD [Med Staff - Active Staff, Podiatry] Care Physician,No Primary [Primary Care Provider, Medical] Activity Restrictions/Additional Instructions: Your x-ray did not show any broken bones. Will treat this as a bruise. If is not improving as expected please follow-up with podiatry. Continue to elevate, ice and take NSAIDs such as naproxen or Aleve as well as mary ellen tape as we discussed. Print Language: [place] Disposition Disposition: Home, Self Care
[2025-03-20 22:25] VITALS: BP 130/80; PULSE 85; RESP 14; TEMP 36.6; O2SAT 99
== END 2025-03-20 22:27 | disposition home or self-care (01) ==
PROVIDERS: Emergency Provider Emergency Medicine; Visit Provider Emergency Medicine
DX: S90.121A Contusion of right lesser toe(s) without damage to nail, initial encounter (principal); X58.XXXA Exposure to other specified factors, initial encounter; Z87.891 Personal history of nicotine dependence
CPT/HCPCS: 73660; 99282